=== PATIENT | female | born 1980 | race Caucasian/White ===

== ENCOUNTER 2017-04-25 19:29 | Outpatient (CLI) | payer OTHER ==
[2017-04-25] MEDS: LACTATED RINGER'S 1,000 ML IV ×2 (23:18→23:49)
[2017-04-25 23:31] LABS: ADD MAN DIFF? NO
[2017-04-25 23:34] LABS: BASOPHIL # 0.1 10^3/ul (0.0-0.1); BASOPHILS % 0.7 % (0.0-2.0); EOSINOPHILS # 0.1 10^3/ul (0.0-0.5); EOSINOPHILS % 1.2 % (0.0-7.0); HEMOGLOBIN 12.3 g/dl (12.0-16.0); LYMPHOCYTES % 19.6 % (15.0-51.0); MEAN CORPUSCULAR HEMOGLOBIN 30.4 pg (29.0-33.0); MEAN CORPUSCULAR HGB CONC 35.1 g/dl (32.0-37.0); MEAN CORPUSCULAR VOLUME 86.4 fl (82.0-101.0); MEAN PLATELET VOLUME 9.9 fl (7.4-10.4); MONOCYTE # 0.7 10^3/ul (0.3-0.9); MONOCYTES % 6.7 % (0.0-11.0); NEUTROPHIL # 7.1 10^3/ul (1.6-7.5); NEUTROPHILS % 70.5 % (39.0-77.0); PLATELET COUNT 255 10^3/UL (140-415); RED BLOOD COUNT 4.05 10^6/ul (4.20-5.40); RED CELL DISTRIBUTION WIDTH 13.8 % (11.5-14.5)
[2017-04-25 23:52] LABS: GLUCOSE 98 mg/dl (70-220)
[2017-04-26 00:04] LABS: ADD UMIC YES; UR ASCORBIC ACID NEGATIVE (NEGATIVE); UR BILIRUBIN (Dip) NEGATIVE (NEGATIVE); UR BLOOD (Dip) NEGATIVE (NEGATIVE); UR CLARITY CLEAR (CLEAR); UR COLOR YELLOW (YELLOW); UR GLUCOSE (Dip) NEGATIVE (NEGATIVE); UR KETONES (Dip) NEGATIVE (NEGATIVE); UR LEUKOCYTE ESTERASE (Dip) 2+ Leu/ul (NEGATIVE); UR MUCUS FEW /HPF (NONE SEEN); UR NITRITE (Dip) NEGATIVE (NEGATIVE); UR RBC 0 /HPF (0-5); UR SPECIFIC GRAVITY (Dip) 1.014 (1.003-1.030); UR TOTAL PROTEIN (Dip) NEGATIVE (NEGATIVE); UR UROBILINOGEN (Dip) NEGATIVE (NEGATIVE); UR WBC 0 /HPF (0-5)
[2017-04-26] MEDS: TERBUTALINE 1 MG/ML INJ SC ×2 (00:16→01:09)
== END 2017-04-26 02:20 | disposition home or self-care (01) ==
LOC: OBT 19:29 → L-D 19:31
DX: O23.43 Unspecified infection of urinary tract in pregnancy, third trimester (principal); O62.9 Abnormality of forces of labor, unspecified; O24.419 Gestational diabetes mellitus in pregnancy, unspecified control; O60.03 Preterm labor without delivery, third trimester; Z3A.35 35 weeks gestation of pregnancy
CPT/HCPCS: 81001; 82947; 85025; 87086; 96360; 96361; 96372

== ENCOUNTER 2017-05-16 00:23 | Inpatient (IN) | payer OTHER ==
[2017-05-16] MEDS ORDERED: LACTATED RINGER'S 1,000 ML IV (01:37)
[2017-05-16] MEDS ORDERED: CARBOPROST 250 MCG INJ IM (02:00)
[2017-05-16] MEDS ORDERED: LIDOCAINE 1% (MPF) 30 ML INJ INJ (02:00)
[2017-05-16] MEDS ORDERED: MISOPROSTOL 200 MCG TAB PR (02:00)
[2017-05-16] MEDS ORDERED: OXYTOCIN 30 UNITS/LR 500 ML IV (02:00)
[2017-05-16] MEDS ORDERED: METHYLERGONOVINE 0.2 MG INJ IM (02:00)
[2017-05-16] MEDS: LACTATED RINGER'S 1,000 ML IV ×2 (02:04→03:26)
[2017-05-16] MEDS: AMPICILLIN 2 GM/NS (PMX) 100 ML IV (02:25)
[2017-05-16 02:53] LABS: ADD MAN DIFF? NO
[2017-05-16 02:59] LABS: WHITE BLOOD COUNT 8.9 10^3/ul (4.8-10.8)
[2017-05-16 02:59] LABS: BASOPHIL # 0.1 10^3/ul (0.0-0.1); BASOPHILS % 0.9 % (0.0-2.0); EOSINOPHILS # 0.2 10^3/ul (0.0-0.5); EOSINOPHILS % 1.8 % (0.0-7.0); HEMATOCRIT 37.4 % (37.0-47.0); HEMOGLOBIN 13.2 g/dl (12.0-16.0); LYMPHOCYTES % 21.9 % (15.0-51.0); MEAN CORPUSCULAR HEMOGLOBIN 30.5 pg (29.0-33.0); MEAN CORPUSCULAR HGB CONC 35.3 g/dl (32.0-37.0); MEAN CORPUSCULAR VOLUME 86.4 fl (82.0-101.0); MONOCYTE # 0.8 10^3/ul (0.3-0.9); NEUTROPHIL # 5.8 10^3/ul (1.6-7.5); NEUTROPHILS % 65.3 % (39.0-77.0); PLATELET COUNT 236 10^3/UL (140-415); RED BLOOD COUNT 4.33 10^6/ul (4.20-5.40)
[2017-05-16 03:15] LABS: INR 0.94; PROTIME 12.7 Sec (11.9-14.9)
[2017-05-16 03:34] LABS: PARTIAL THROMBOPLASTIN TIME 26.8 Sec (25.0-35.0)
[2017-05-16 03:42] LABS: GLUCOSE 82 mg/dl (70-220)
[2017-05-16] MEDS: DEXTROSE 5%-LR 1,000 ML IV (03:57)
[2017-05-16 04:01] LABS: HEPATITIS B SURFACE ANTIGEN NEGATIVE (NEGATIVE)
[2017-05-16] MEDS: BUTORPHANOL 2 MG INJ IV (05:19)
[2017-05-16] MEDS: AMPICILLIN 1 GM/NS (PMX) 50 ML IV (06:02)
[2017-05-16] MEDS: IBUPROFEN 600 MG TAB PO ×4 (07:57→17:28)
[2017-05-16] MEDS: OXYTOCIN 30 UNITS/LR 500 ML IV ×4 (08:06→10:44)
[2017-05-16] MEDS ORDERED: ACETAMINOPHEN 325 MG TAB PO (11:00)
[2017-05-16] MEDS ORDERED: ONDANSETRON 4 MG INJ IV (11:00)
[2017-05-16] MEDS ORDERED: OXYCODONE/ASPIRIN (4.88/325) TAB PO ×2 (11:00)
[2017-05-16] MEDS ORDERED: HYDROCODONE/APAP (5/325) TAB PO ×2 (11:00)
[2017-05-16] MEDS: DIBUCAINE 1% 30 GM OINT PR (12:13)
[2017-05-16] MEDS: BENZOCAINE 20% 56 ML SPRAY TOP (12:14)
[2017-05-16] MEDS: LANOLIN 7 GM TUBE TOP (12:14)
[2017-05-16] MEDS: WITCH HAZEL/GLYCERIN PAD PR (12:14)
[2017-05-16] MEDS: SENNA/DOCUSATE NA (8.6MG/50MG) TAB PO ×2 (12:15→21:01)
[2017-05-16 22:06] LABS: RAPID PLASMA REAGIN NONREACTIVE (NR)
[2017-05-17] MEDS: IBUPROFEN 600 MG TAB PO ×5 (05:37→23:29)
[2017-05-17] MEDS: SENNA/DOCUSATE NA (8.6MG/50MG) TAB PO ×2 (08:57→21:14)
[2017-05-17 09:23] LABS: ADD MAN DIFF? NO
[2017-05-17 09:27] LABS: BASOPHIL # 0.1 10^3/ul (0.0-0.1); BASOPHILS % 0.6 % (0.0-2.0); EOSINOPHILS # 0.2 10^3/ul (0.0-0.5); EOSINOPHILS % 1.4 % (0.0-7.0); HEMATOCRIT 32.9 % (37.0-47.0); HEMOGLOBIN 11.5 g/dl (12.0-16.0); LYMPHOCYTES # 2.5 10^3/ul (0.8-2.9); MEAN CORPUSCULAR HEMOGLOBIN 30.3 pg (29.0-33.0); MEAN CORPUSCULAR VOLUME 86.8 fl (82.0-101.0); MEAN PLATELET VOLUME 10.6 fl (7.4-10.4); MONOCYTE # 0.7 10^3/ul (0.3-0.9); MONOCYTES % 5.5 % (0.0-11.0); NEUTROPHIL # 9.4 10^3/ul (1.6-7.5); NEUTROPHILS % 72.4 % (39.0-77.0); PLATELET COUNT 256 10^3/UL (140-415); RED BLOOD COUNT 3.79 10^6/ul (4.20-5.40); RED CELL DISTRIBUTION WIDTH 14.3 % (11.5-14.5)
[2017-05-18] MEDS: IBUPROFEN 600 MG TAB PO (05:48)
[2017-05-18] MEDS: MEASLES,MUMPS,RUBELLA VACCINE INJ SC* (09:00)
[2017-05-18] MEDS: SENNA/DOCUSATE NA (8.6MG/50MG) TAB PO (10:10)
[2017-05-18] MEDS: LANOLIN 7 GM TUBE TOP (10:16)
== END 2017-05-18 11:15 | disposition home or self-care (01) | DRG 775 ==
LOC: OBT 00:23 → L-D 00:24 → OBT 01:41 → L-D 01:43 → PP1 10:03
PROVIDERS: Obstetrics & Gynecology
PROC: 10E0XZZ Delivery of Products of Conception, External Approach (ICD-10-PCS; principal; 2017-05-16)
PROC: 0HQ9XZZ Repair Perineum Skin, External Approach (ICD-10-PCS; 2017-05-16)
PROC: 3E033VJ Introduction of Other Hormone into Peripheral Vein, Percutaneous Approach (ICD-10-PCS; 2017-05-16)
DX: O70.0 First degree perineal laceration during delivery (principal); O69.81X0 Labor and delivery complicated by cord around neck, without compression, not applicable or unspecified; Z3A.38 38 weeks gestation of pregnancy; Z37.0 Single live birth
CPT/HCPCS: 82947; 82962; 85025; 85610; 85730; 86592; 86900; 86901; 87340

== ENCOUNTER 2018-02-13 07:05 | Day surgery (SDC) | payer OTHER ==
[~2018-02-13 07:05] MED LIST: CEFAZOLIN 1 GM INJ; CEFAZOLIN 2 GM/50 ML (PMX) 50 ML IVPB; LACTATED RINGER'S 1,000 ML IV*
[2018-02-13] MEDS ORDERED: ROPIVACAINE 0.5 % 30 ML VIAL (07:43)
[2018-02-13] MEDS ORDERED: FENTAnyl 50 MCG/ML VIAL (07:43)
[2018-02-13] MEDS ORDERED: HYDROmorphONE 1 MG/5 ML IV SYRINGE IV ×3 (09:00)
[2018-02-13] MEDS ORDERED: METOCLOPRAMIDE 10 MG INJ IV (09:00)
[2018-02-13] MEDS ORDERED: DIPHENHYDRAMINE 50 MG INJ IV (09:00)
[2018-02-13] MEDS ORDERED: FENTAnyl 50 MCG/ML VIAL IV ×2 (09:00)
[2018-02-13] MEDS ORDERED: ROCURONIUM 50 MG INJ (09:28)
[2018-02-13] MEDS ORDERED: SUCCINYLCHOLINE CHLORIDE 100 MG/5 ML SYG IV ×2 (09:28→09:29)
[2018-02-13] MEDS ORDERED: SUGAMMADEX SODIUM 200 MG/2 ML VIAL IV (09:28)
[2018-02-13] MEDS ORDERED: PROPOFOL 20 ML (09:28)
[2018-02-13] MEDS ORDERED: LIDOCAINE 100 MG SYRINGE (09:28)
[2018-02-13] MEDS: ALBUTEROL 0.083% (NEB) 2.5 MG/3 ML AMP HHN (10:13)
[2018-02-13] MEDS: ONDANSETRON 4 MG INJ IV (10:15)
[2018-02-13] MEDS: MEPERIDINE 25 MG INJ IV (10:15)
[2018-02-13] MEDS: FENTAnyl 50 MCG/ML VIAL IV (11:00)
== END 2018-02-13 11:36 | disposition home or self-care (01) ==
LOC: SDS 07:05
DX: Z30.2 Encounter for sterilization (principal)
CPT/HCPCS: 58670; 84703; 94664